=== PATIENT | male | born 1965 | race Caucasian/White ===

== ENCOUNTER 2017-04-11 08:37 | Outpatient (CLI) | payer OTHER | END 2017-04-11 17:00 | disposition home or self-care (01) | LOC: RAD 08:37 | DX: K57.20 Diverticulitis of large intestine with perforation and abscess without bleeding (principal) ==

== ENCOUNTER 2017-04-11 08:46 | Outpatient (CLI) | payer OTHER | END 2017-04-11 18:00 | disposition home or self-care (01) | LOC: SONOGRAMA 08:46 | DX: N50.819 Testicular pain, unspecified (principal) ==